=== PATIENT | female | born 1930 | race American Indian/Alaskan Native ===

== ENCOUNTER 2020-03-14 22:14 | Emergency (ER) | payer MEDICARE ==
--- NOTE | 2020-03-15 00:18 | Emergency Department Report ---
HPI - General Chief Complaint: Medical Clearance Time Seen by Provider: 03/14/20 23:20 - HPI HPI: This is an 89-year-old female who presents to the emergency department via EMS from her senior living facility with complaint of her rectal tube falling out y esterday. She has a past medical history of CVA, dementia, diabetes, hypertension, acid reflux. She has a feeding tube and Morales catheter in place. The patient is nonverbal. ED Past Medical Hx - Past Medical History Previous Medical History?: Yes Hx Hypertension: Yes Hx Congestive Heart Failure: Yes Hx Arthritis: Yes Hx Dementia: Yes (alzheimer) Additional medical history: See HPI, hyperlipidemia - Surgical History Past Surgical History?: Yes Additional Surgical History: feeding tube - Social History Smoking Status: Unknown if ever smoked - Medications Home Medications: Home Medications Medication Instructions Recorded Confirmed Last Taken Type Dextrose 50% in Water [D50W (25GM) 50 ml IV Q30MIN PRN syringe 01/07/20 Unknown Rx Syringe] Dextrose 50% in Water [D50W (25GM) 50 ml IV Q30MIN PRN syringe 01/07/20 Unknown Rx Syringe] Insulin Lispro [Humalog] 0 unit SUB-Q Q6H vial 01/07/20 Unknown Rx Insulin Lispro [Humalog] 0 unit SUB-Q Q6H vial 01/07/20 Unknown Rx Lansoprazole Solutab [Prevacid 30 mg FEEDTUBE BID tab.rapdis 01/07/20 Unknown Rx Solutab] Lansoprazole Solutab [Prevacid 30 mg FEEDTUBE BID tab.rapdis 01/07/20 Unknown Rx Solutab] Lipase/Protease/Amylase [Pancreaze 1 each FEEDTUBE PRN PRN capsule 01/07/[address] 10,500 Unit] Lipase/Protease/Amylase [Pancreaze 1 each FEEDTUBE PRN PRN capsule 01/07/[address] 10,500 Unit] Loperamide 2 mg PO Q2HR PRN liquid 01/07/20 Unknown Rx Loperamide 2 mg PO Q2HR PRN liquid 01/07/20 Unknown Rx Metoprolol [Lopressor TAB] 50 mg PO BID tablet 01/07/20 Unknown Rx Metoprolol [Lopressor TAB] 50 mg PO BID tablet 01/07/20 Unknown Rx Simple Syrup 15 ml FEEDTUBE PRN PRN oral.liqd 01/07/20 Unknown Rx Simple Syrup 30 ml FEEDTUBE PRN PRN oral.liqd 01/07/20 Unknown Rx Sodium Bicarbonate 325 mg FEEDTUBE PRN PRN tablet 01/07/20 Unknown Rx Sodium Bicarbonate 325 mg FEEDTUBE PRN PRN tablet 01/07/20 Unknown Rx Sodium Hypochlorite [Dakin's Half 1 applic TP BID bottle 01/07/20 Unknown Rx Strength] amLODIPine 5 mg PO QDAY tablet 01/07/20 Unknown Rx amLODIPine 5 mg PO QDAY tablet 01/07/20 Unknown Rx hydrALAZINE [Apresoline INJ] 10 mg IV Q4HR PRN vial 01/07/20 Unknown Rx hydrALAZINE [Apresoline INJ] 10 mg IV Q4HR PRN vial 01/07/20 Unknown Rx ED Review of Systems ROS: Stated complaint: RECTAL TUBE PLACEMENT Other details as noted in HPI Comment: Unobtainable due to pts medical conditions Physical Exam - Physical Exam Vital Signs: Vital Signs 03/14/20 03/14/20 03/14/20 22:41 22:47 23:00 Temperature 98.8 F Pulse Rate 101 H 102 H 99 H Respiratory 10 L 16 22 Rate Blood Pressure 127/72 Blood Pressure 127/72 [Left] O2 Sat by Pulse 100 100 99 Oximetry 03/14/20 23:30 Temperature Pulse Rate 100 H Respiratory 21 Rate Blood Pressure 119/69 Blood Pressure [Left] O2 Sat by Pulse 99 Oximetry Physical Exam: GENERAL: The patient is well-developed well-nourished. HENT: Normocephalic. Atraumatic. EYES: Extraocular motions are intact. NECK: Supple. Trachea is midline. CHEST/LUNGS: Clear to auscultation. There is no respiratory distress noted. HEART/CARDIOVASCULAR: Regular. There is no tachycardia. ABDOMEN: Abdomen is soft. Patient has normal bowel sounds. There is no abdominal distention. SKIN: Skin is warm and dry. NEURO: Patient is sleeping but arousable. Withdraws from painful stimuli. MUSCULOSKELETAL: There is no tenderness to palpation. ED Course Vital Signs 03/14/20 03/14/20 03/14/20 22:41 22:47 23:00 Temperature 98.8 F Pulse Rate 101 H 102 H 99 H Respiratory 10 L 16 22 Rate Blood Pressure 127/72 Blood Pressure 127/72 [Left] O2 Sat by Pulse 100 100 99 Oximetry 03/14/20 23:30 Temperature Pulse Rate 100 H Respiratory 21 Rate Blood Pressure 119/69 Blood Pressure [Left] O2 Sat by Pulse 99 Oximetry ED Medical Decision Making - Radiology Data Radiology results: image reviewed interpreted by me: Abdominal x-ray shows nonspecific nonobstructive bowel gas. - Medical Decision Making The patient was sent in from her senior living facility for a replacement of her rectal tube. She does not appear in any acute distress. The rectal tube was placed without any difficulty or obvious complications. Abdominal x-ray was done to make sure that there was no sign of any trauma or perforation from the rectal tube placement. Abdominal x-ray shows nonspecific nonobstructive bowel g as without signs of free air. Vital signs have been reassuring throughout her ED course. The patient will be transported back to her senior living facility. Critical Care Time: No Critical care attestation.: If time is entered above; I have spent that time in minutes in the direct care of this critically ill patient, excluding procedure time. ED Disposition Clinical Impression: Debility Alzheimer's dementia Qualifiers: Alzheimer's disease onset: unspecified onset Dementia behavioral disturbance: without behavioral disturbance Qualified Code(s): G30.9 - Alzheimer's disease, unspecified; F02.80 - Dementia in other diseases classified elsewhere without behavioral disturbance Disposition: DC-01 TO HOME OR SELFCARE Is pt being admited?: No Condition: Stable Additional Instructions: Please follow-up with the primary care physician in the next few days. Return to the emergency department with any worsening of your symptoms, new or concerning symptoms not addressed during this current emergency department visit, or with any acute distress. Referrals: PRIMARY MD ONEAL [Primary Care Provider] - 2-3 Days Time of Disposition: 02:05
--- NOTE | 2020-03-15 02:01 | XRay Report ---
ABDOMEN 2 VIEW(S) INDICATION / CLINICAL INFORMATION: Rectal tube insertion. COMPARISON: 01/06/20. FINDINGS: TUBES / LINES: The nasogastric tube has been removed. There is a new gastrostomy tube without complic ation. I do not identify a rectal tube. BOWEL GAS PATTERN: There is no evidence of bowel obstruction or mass effect. FREE AIR / EXTRALUMINAL GAS: None seen. ADDITIONAL FINDINGS: There are atherosclerotic calcifications involving aorta and iliac vessels witho ut aneurysm. Moderate spondylosis is noted. IMPRESSION: No acute abnormality. Signer Name: Natalio Cartagena MD Signed: 03/15/2020 1:56 AM Workstation Name: [id number]
[2020-03-15 05:11] VITALS: BP 137/68
== END 2020-03-15 10:14 | disposition home or self-care (01) ==
LOC: ED 22:14
DX: G30.9 Alzheimer's disease, unspecified (principal); F02.80 Dementia in other diseases classified elsewhere, unspecified severity, without behavioral disturbance, psychotic disturbance, mood disturbance, and anxiety; R53.81 Other malaise; I11.0 Hypertensive heart disease with heart failure; I50.9 Heart failure, unspecified; M19.91 Primary osteoarthritis, unspecified site; Z98.890 Other specified postprocedural states; Z79.4 Long term (current) use of insulin; Z79.899 Other long term (current) drug therapy; Z88.0 Allergy status to penicillin; Z88.2 Allergy status to sulfonamides
CPT/HCPCS: 74019